=== PATIENT | female | born 1985 | race Native Hawaiian/Other Pacific Islander ===

== ENCOUNTER 2017-12-12 16:01 | Outpatient (CLI) | payer MEDICAID ==
[2017-12-12 20:52] VITALS: BP 116/67
== END 2017-12-12 18:05 | disposition home or self-care (01) ==
LOC: LAB 16:01 → TRG 18:07
PROVIDERS: ATTEND Advanced Practice Midwife
DX: O36.0130 Maternal care for anti-D [Rh] antibodies, third trimester, not applicable or unspecified (principal); Z3A.28 28 weeks gestation of pregnancy
CPT/HCPCS: 86850; 86900; 86901; 96372; J2790

== ENCOUNTER 2018-02-18 11:39 | Inpatient (IN) | payer MEDICAID ==
[2018-02-18] MEDS ORDERED: XYLOCAINE 2% INFILTRATI ONE (13:07)
[2018-02-18] MEDS ORDERED: MINERAL OIL PO PRN (13:07)
[2018-02-18] MEDS ORDERED: BRETHINE SUB-Q PRN (13:07)
[2018-02-18] MEDS ORDERED: BRETHINE IVP PRN (13:07)
[2018-02-18] MEDS ORDERED: ePHEDrine SULFATE IV PRN (13:07)
[2018-02-18] MEDS ORDERED: PITOCin/NS 20 UNIT/1000ML DRIP 20 UNITS/1,000 ML BAG IV SCH (14:00)
[2018-02-18] MEDS ORDERED: PITOCin/NS 30 UNIT/500ML 30 UNITS/500 ML BAG IV SCH ×2 (14:00)
[2018-02-18] MEDS ORDERED: LACTATED RINGERS 1,000 ML IV SCH (14:00)
[2018-02-18 14:38] LABS: Hematocrit 31.5 % (30.3-42.9); Hemoglobin 10.6 gm/dl (10.1-14.3); Mean Corpuscular HGB Conc 34 % (30-34); Mean Corpuscular Hemoglobin 31 pg (28-32); Mean Corpuscular Volume 91 fl (79-97); Platelet Count 204 K/mm3 (140-440); Red Blood Count 3.45 M/mm3 (3.65-5.03); Red Cell Distribution Width 12.5 % (13.2-15.2)
[2018-02-18] MEDS ORDERED: SUBLIMAZE IV SCH (17:00)
--- NOTE | 2018-02-18 17:44 | History and Physical Report ---
History of Present Illness Date of examination: 02/18/18 Date of admission: 02/18/18 11:39 Chief complaint: SROM 01:30 am 02/18/18 History of present illness: 32 yo Fe , LMP 05/29/2017, ELI 03/05/2018 (LMP) 37weeks 6 days presents from office with SROM 02/18/2018 @ 01:30. A negative, Rubella immune, GBS negative. Pt initiated early care at [facility] [employer] at 6 weeks gestation. course complicated by Anemia (taking FeS04 supplementation). Past History Past Medical History: no pertinent history Past Surgical History: no surgical history [employer] History: abnormal PAP smear (01/22/17 ASCUS + HR HPV , Colpo Negative 01/2017) , chlamydia (2008). denies: gonorrhea, hepatitis B, hepatitis C, herpes, HIV, syphilis, trichomonas Family/Genetic History: hypertension Social history: no significant social history, single, lives with family, full code. denies: smoking, alcohol abuse, prescription drug abuse, IV drug use - Obstetrical History Expected Date of Delivery: 03/05/18 Actual Gestation: 37 Week(s) 6 Day(s) : 2 Hx # Term Pregnancies: 1 Number of Pregnancies: 0 Spontaneous Abortions: 0 Induced : 0 Number of Living Children: 1 #1 Gender: Male year: 2[age][birth year] Birthweight: 3.232 kg Method of Delivery: Vaginal Gestational age at delivery: 40 Complications: none Medications and Allergies Allergies Allergy/AdvReac Type Severity Reaction Status Date / Time No Known Allergies Allergy Unverified 12/12/17 18:16 Home Medications Medication Instructions Recorded Confirmed Last Taken Type No Known Home Medications [No 02/18/18 02/18/18 Unknown History Reported Home Medications] Active Meds: Active Medications Ephedrine Sulfate (Ephedrine Sulfate) 10 mg IV Q2M PRN PRN Reason: Hypotension Fentanyl (Sublimaze) 100 mcg IV ONCE AVILA Last Admin: 02/18/18 16:25 Dose: 100 mcg Lactated Ringer's (Lactated Ringers) 1,000 mls @ 125 mls/hr IV DIRECT AVILA Last Admin: 02/18/18 14:20 Dose: 125 mls/hr Oxytocin/Sodium Chloride (Pitocin/Ns 20 Unit/1000ml Drip) 20 units in 1,000 mls @ 125 mls/hr IV DIRECT AVILA Oxytocin/Sodium Chloride (Pitocin/Ns 30 Unit/500ml) 30 units in 500 mls @ 4 mls /hr IV TITR AVILA; Protocol Oxytocin/Sodium Chloride (Pitocin/Ns 30 Unit/500ml) 30 units in 500 mls @ 1 mls /hr IV TITR AVILA; Protocol Last Titration: 02/18/18 15:12 Dose: 8 milliunits/min, 8 mls/hr Mineral Oil (Mineral Oil) 30 ml PO QHS PRN PRN Reason: Constipation Terbutaline Sulfate (Brethine) 0.25 mg SUB-Q ONCE PRN PRN Reason: Hyperstimulation/Hypertonicity Terbutaline Sulfate (Brethine) 0.25 mg IVP ONCE PRN PRN Reason: Hyperstimulation/Hypertonicity Review of Systems Cardiovascular: no chest pain, no shortness of breath Respiratory: no shortness of breath Breasts: normal Gastrointestinal: no abdominal pain, no nausea, no vomiting, no diarrhea, no constipation Genitourinary: normal appearance, leakage of fluid (SROM 02/18/18 @ 01:30 clear fluid), contractions, no genital sores Integumentary: no rash, no sores, no lesions - Vital Signs Vital signs: Vital Signs Pulse Resp BP Pulse Ox 64 16 136/70 100 02/18/18 13:55 02/18/18 13:55 02/18/18 13:55 02/18/18 13:55 Temp Pulse Resp BP Pulse Ox 64 20 136/70 100 02/18/18 13:55 02/18/18 16:25 02/18/18 13:55 02/18/18 13:55 - Physical Exam Cardiovascular: Regular rate, Normal S1, Normal S2 Lungs: Positive: Clear to auscultation, Normal air movement Abdomen: Positive: normal appearance, soft, normal bowel sounds Genitourinary (Female): Positive: normal external genitalia, normal perenium Vulva: both: normal Vagina: Positive: normal moisture (clear fluid noted leaking from vagina) Uterus: Positive: enlarged (gravid, S=D) Anus/Rectum: Positive: normal perianal skin Extremities: Positive: normal Deep Tendon Reflex Grade: Normal +2 - Obstetrical FHR: category 1 Uterine Contraction Monitor Mode: External Cervical Dilatation: 4 (on admission) Cervical Effacement Percentage: 75 station: -2 Uterine Contraction Pattern: Irregular Uterine Tone Measurement Phase: Resting Uterine Contraction Intensity: Moderate Results Result Diagrams: 02/18/18 13:20 Abnormal lab results 02/18/18 Range/Units 13:20 RBC 3.45 L (3.65-5.03) M/mm3 RDW 12.5 L (13.2-15.2) % All other labs normal. Assessment and Plan A: IUP at 37w6d GBS Negative Category 1 tracing SROM 02/18/18 @ 01:30, clear fluid P: Admit to L&D Augment with pitocin Expect
[2018-02-18] MEDS ORDERED: TUCKS PAD TP PRN (17:53)
[2018-02-18] MEDS ORDERED: PHENERGAN PO PRN (17:53)
[2018-02-18] MEDS ORDERED: LANSINOH TP PRN (17:53)
[2018-02-18] MEDS ORDERED: MILK OF MAGNESIA PO PRN (17:53)
[2018-02-18] MEDS ORDERED: DULCOLAX PR PRN (17:53)
[2018-02-18] MEDS ORDERED: TYLENOL PO PRN (17:53)
[2018-02-18] MEDS ORDERED: BENADRYL PO PRN (17:53)
[2018-02-18] MEDS ORDERED: ZOFRAN IV PRN (17:53)
[2018-02-18] MEDS ORDERED: SODIUM CHLORIDE FLUSH SYRINGE 10 ML IV NR (18:00)
--- NOTE | 2018-02-18 18:02 | Procedure Note ---
OB Delivery Note - Delivery Date of Delivery: 02/18/18 Surgeon: ANEGL LUIS MAN (SUMMER) Estimated blood loss: 100cc - Vaginal Delivery presentation: vertex Delivery position: OA Intrapartum events: none Delivery induction: none Delivery augmentation: pitocin Delivery monitor: external FHT, external uterine Route of delivery: Delivery placenta: spontaneous Delivery cord: nuchal cord (x1 loose), 3 umbilical vessels Episiotomy: none Delivery laceration: none Anesthesia: intravenous Delivery comments: viable male , NELLA position, Loose nuchal x1 delivered intact via somersault maneuver at 17:13 over intact perineum. to mothers abdomen with assistance from FOB. Delayed cord clamping then cut by FOB. Cord blood collected per protocol (A Negative). Spontaneous [place] delivery of intact placenta at 17:18. 3VC. FF@U-2, scant lochia. No tears or lacerations. EBL 100cc. and mother left in stable condition in L&D. - Infant A at 1 minute: 9 at 5 minutes: 9 Gender: Male (2866 grams, 6lbs 5oz, 18")
[2018-02-18] MEDS: MOTRIN PO SCH (19:17)
[2018-02-19] MEDS: MOTRIN PO SCH ×4 (00:22→17:40)
[2018-02-19] MEDS: NORCO 5/325 PO PRN ×2 (02:04→18:20)
[2018-02-19 08:05] LABS: Hematocrit 25.1 % (30.3-42.9); Hemoglobin 8.7 gm/dl (10.1-14.3)
--- NOTE | 2018-02-19 10:23 | Progress Note ---
Assessment and Plan A: PP Day #1 Asymptomatic Anemia P: Follow Routine Orders Infed 100mg IM X 1 dose FeSO4 325mg PO BID; Continue at home D/C Home today per patient request RTO in 6 Weeks Subjective - Subjective Date of service: 02/19/18 Patient reports: appetite normal, voiding normally, pain well controlled, flatus , ambulating normally Gill: doing well Objective - Vital Signs Latest vital signs: Vital Signs Temp Pulse Resp BP Pulse Ox 02/19/18 05:39 20 02/19/18 04:00 98.6 F 66 16 102/79 02/19/18 02:04 20 02/19/18 00:22 18 02/19/18 00:00 98.7 F 66 16 100/64 02/18/18 19:27 97.9 F 64 18 100/52 02/18/18 19:17 18 02/18/18 18:55 97.8 F 68 16 97/54 99 02/18/18 16:25 20 02/18/18 13:55 64 16 136/70 100 Intake and Output 02/18/18 02/19/18 02/19/18 22:59 06:59 14:59 Intake Total 3 Output Total 1400 400 Balance -1397 -400 Intake: IV 3 PITOCin/NS 30 UNIT/500ML 3 30 units In 500 ml @ 1 MILLIUNITS/MIN 1 mls/hr IV TITR AVILA Rx#:[id number] Output: Urine 1400 400 Void 1400 400 Other: Total, Output Amount 600 400 # Voids Void 1 1 Estimated Blood Loss 100 - Exam Breasts: Present: normal Cardiovascular: Present: Regular rate Lungs: Present: Clear to auscultation, Normal air movement Abdomen: Present: normal appearance, soft, normal bowel sounds Uterus: Present: normal, firm, fundal height below umbilicus Extremities: Present: normal - Labs Labs: Abnormal lab results 02/18/18 02/19/18 Range/Units 13:20 07:30 RBC 3.45 L (3.65-5.03) M/mm3 Hgb 8.7 L (10.1-14.3) gm/dl Hct 25.1 L D (30.3-42.9) % RDW 12.5 L (13.2-15.2) %
--- NOTE | 2018-02-19 10:25 | Discharge Summary ---
Providers - Providers Date of Admission: 02/18/18 11:39 Date of discharge: 02/19/18 Attending physician: BOGDAN WOODRUFF MD Primary care physician: BOGDAN WOODRUFF MD Hospitalization Reason for admission: rupture of membranes Delivery: Episiotomy: none Laceration: none Other procedures: none complications: none Discharge diagnosis: IUP at term delivered [place] baby: male Condition at discharge: Good Disposition: DC-01 TO HOME OR SELFCARE Plan - Provider Discharge Summary Activity: routine, no sex for 6 weeks, no heavy lifting 4 weeks, no strenuous exercise Diet: routine Instructions: routine Additional instructions: [] Smoking cessation referral if applicable(refer to patient education folder for contact #) [] Refer to [facility] Call your doctor immediately for: * Fever > 100.5 * Heavy vaginal bleeding ( >1 pad per hour) * Severe persistent headache * Shortness of breath * Reddened, hot, painful area to leg or breast * Drainage or odor from incision. * Keep incision clean and dry at all times and follow doctor's instructions regarding bathing/showering - Follow up plan Follow up: BOGDAN WOODRUFF MD [Primary Care Provider] - 6 Weeks
[2018-02-19] MEDS ORDERED: INFED IM ONE (12:00)
[2018-02-19] MEDS ORDERED: FEOSOL PO SCH (12:00)
[2018-02-19 13:22] VITALS: BP 91/54
== END 2018-02-19 19:25 | disposition home or self-care (01) | DRG 775 ==
LOC: LD 11:39 → OB 19:11
PROVIDERS: ADMIT Obstetrics & Gynecology; ATTEND Obstetrics & Gynecology
PROC: 10E0XZZ Delivery of Products of Conception, External Approach (ICD-10-PCS; principal; 2018-02-18)
DX: O69.81X0 Labor and delivery complicated by cord around neck, without compression, not applicable or unspecified (principal); O99.02 Anemia complicating childbirth; D64.9 Anemia, unspecified; Z3A.37 37 weeks gestation of pregnancy; Z37.0 Single live birth
CPT/HCPCS: 36415; 82962; 85014; 85018; 85027; 86850; 86870; 86900; 86901; J1750; J2590; J3010; J7120